=== PATIENT | male | born 1975 | race Two or more races ===

== ENCOUNTER → 2017-06-25 | Outpatient (CLI) | END | disposition home or self-care (01) ==

== ENCOUNTER 2018-09-23 06:14 | Day surgery (SDC) | payer OTHER ==
[~2018-09-23] VITALS: Ht 180.3 cm; Wt 100.9 kg
[2018-09-23 07:15] VITALS: BP 137/90; PULSE 69; RESP 14; Ht 180.3 cm; Wt 100.9 kg
[2018-09-23] MEDS ORDERED: no medications (07:22)
[2018-09-23] MEDS ORDERED: MIDAZOLAM 1 MG/ML 2 ML INJ ONE ×3 (08:39)
[2018-09-23] MEDS ORDERED: FENTAnyl 50 MCG/ML VIAL ONE (08:39)
[2018-09-23 08:55] VITALS: BP 171/90; PULSE 68; RESP 15
== END 2018-09-23 11:37 | disposition home or self-care (01) ==
LOC: GIL 06:14
PROVIDERS: ATTEND Internal Medicine Gastroenterology
DX: K92.1 Melena (principal); K64.4 Residual hemorrhoidal skin tags; K57.30 Diverticulosis of large intestine without perforation or abscess without bleeding; K62.89 Other specified diseases of anus and rectum
CPT/HCPCS: 45380; 84703; 88305; J2250; J3010